=== PATIENT | male | born 1950 | race Caucasian/White ===

== ENCOUNTER 2019-10-02 10:36 | Emergency (ER) | payer MEDICARE, OTHER ==
[2019-10-02 12:33] VITALS: BP 153/82
--- NOTE | 2019-10-02 12:38 | UC ---
Throat Pain/Nasal Eddie HPI - HPI Summary HPI Summary: Patient is a 69-year-old male presenting with for sore throat, productive cough, and nasal congestion 3 days. Patient states congestion has worsened today and he is coughing a lot at night. Patient states he just can't take it anymore. Notes right ear pressure. Denies sinus tenderness. Denies shortness of breath and wheezing. Denies nausea, vomiting, diarrhea, abdominal pain. Denies fevers, chills, headaches. He denies history of asthma. Patient is former smoker quit 10 years ago. - History of Current Complaint Chief Complaint: UCRespiratory Stated Complaint: SORE THROAT, COUGH Hx Obtained From: Patient Onset/Duration: Gradual Onset, Lasting Days Pain Intensity: 0 - Allergies/Home Medications Allergies/Adverse Reactions: Allergies Allergy/AdvReac Type Severity Reaction Status Date / Time gabapentin Allergy Altered Verified 10/02/19 12:26 Mental Status Home Medications: Home Medications Fluticasone NASAL SPRAY 50MCG* [Flonase NASAL SPRAY 50MCG*] 2 spray BOTH NARES DAILY PRN 10/02/19 [History Confirmed 10/02/19] Lisinopril TAB* [Prinivil TAB*] 10 mg PO DAILY 10/02/19 [History Confirmed 10/02] Simvastatin 20 mg PO DAILY 10/02/19 [History Confirmed 10/02/19] rOPINIRole TAB* [Requip*] 4 mg PO BEDTIME 10/02/19 [History Confirmed 10/02/19] traMADol TAB* [Ultram*] 25 mg PO TID 10/02/19 [History Confirmed 10/02/19] PMH/Surg Hx/FS Hx/Imm Hx Cardiovascular History: Hypertension - Surgical History Surgical History: Yes Surgery Procedure, Year, and Place: neck- 2003. 2005- lumbar. 2008- thorasic back. urethralplasty - Social History Occupation: Retired Alcohol Use: Daily Alcohol Amount: 3 beer daily Substance Use Type: None Smoking Status (MU): Former Smoker When Did the Patient Quit Smoking/Using Tobacco: 10 years ago Review of Systems All Other Systems Reviewed And Are Negative: Yes Constitutional: Positive: Negative. Negative: Fever, Chills, Fatigue Eyes: Positive: Negative ENT: Positive: Sore Throat, Ear Ache - Right ear, Nasal Discharge, Sinus Congestion. Negative: Sinus Pain/Tenderness Respiratory: Positive: Cough. Negative: Shortness Of Breath Cardiovascular: Positive: Negative. Negative: Palpitations, Chest Pain Gastrointestinal: Positive: Negative. Negative: Abdominal Pain, Vomiting, Diarrhea, Nausea Musculoskeletal: Positive: Negative Neurological: Positive: Negative Physical Exam Triage Information Reviewed: Yes Appearance: Well-Appearing, No Pain Distress, Well-Nourished Vital Signs: Initial Vital Signs Temp 99.2 F 10/02/19 12:28 Pulse 96 10/02/19 12:28 Resp 17 10/02/19 12:28 BP 153/82 10/02/19 12:28 Pulse Ox 96 10/02/19 12:28 Vital Signs Reviewed: Yes Eyes: Positive: Conjunctiva Clear ENT: Positive: Hearing grossly normal, Pharyngeal erythema, Nasal congestion, Nasal drainage - PND, TMs normal, Uvula midline. Negative: Tonsillar swelling, Tonsillar exudate, Hoarse voice, Sinus tenderness Neck exam: Normal Neck: Positive: Supple, Nontender, No Lymphadenopathy Respiratory Exam: Normal Respiratory: Positive: Lungs clear, Normal breath sounds, No respiratory distress. Negative: Crackles, Rhonchi, Stridor, Wheezing Cardiovascular Exam: Normal Cardiovascular: Positive: RRR Neurological: Positive: Alert Psychological: Positive: Age Appropriate Behavior Throat Pain/Nasal Course/Dx - Course Course Of Treatment: Educated patient on upper respiratory infections and acute bronchitis. Discussed likely viral etiology and to continue with symptomatic treatment including decongestants, nasal spray, and use of Tessalon Perles help really coughing at night. Discussed elevated blood pressure with patient and he states he has whitecoat hypertension along with diagnosed hypertension for which he takes lisinopril states it is normally not this high. Instructed patient to follow up with PCP or referral as listed if symptoms persist past 7- 10 days. Instructed to go to ED if they worsen. Patient voiced understanding and agreed with the treatment plan. - Differential Dx/Diagnosis Provider Diagnosis: Upper respiratory infection, Acute bronchitis, Elevated blood pressure reading in office with white coat syndrome, with diagnosis of hypertension Discharge ED - Sign-Out/Discharge Documenting (check all that apply): Patient Departure All imaging exams completed and their final reports reviewed: No Studies - Discharge Plan Condition: Stable Disposition: HOME Prescriptions: Benzonatate CAP* [Tessalon 100 MG CAP*] 100 mg PO TID PRN #[id number] cap PRN Reason: Cough Patient Education Materials: Upper Respiratory Infection (ED), Acute Bronchitis (ED) Referrals: [facility] [place] [facility] [Outside] - If Needed Additional Instructions: As discussed, your symptoms are likely caused by a virus. Viruses do not respond to antibiotic treatment. You may continue use of Mucinex as directed to help reduce mucous production. You may take the Tessalon Perles as prescribed help alleviate coughing. You may also continue with flonase. Increase your fluid intake and get plenty of rest. Follow-up with your PCP or one of the referrals listed below if symptoms do not resolve within 7-10 days. Go to the emergency room if he experienced fever higher than 102, difficulty breathing, or nausea and vomiting. - Billing Disposition and Condition Condition: STABLE Disposition: Home
== END 2019-10-02 12:58 | disposition home or self-care (01) ==
LOC: UCCORT 10:36
DX: J06.9 Acute upper respiratory infection, unspecified (principal); J20.9 Acute bronchitis, unspecified; I10 Essential (primary) hypertension; Z87.891 Personal history of nicotine dependence; Z88.8 Allergy status to other drugs, medicaments and biological substances
CPT/HCPCS: 99201; G0463

== ENCOUNTER 2019-10-07 08:56 | Emergency (ER) | payer MEDICARE ==
[2019-10-07 10:06] VITALS: BP 150/86
--- NOTE | 2019-10-07 10:39 | UC ---
Throat Pain/Nasal Eddie HPI - HPI Summary HPI Summary: 69 y/o male presents to the urgent care c/o sore throat, dry cough, sinus congestion w/ green drainage for the past 7 days. Pt was seen here at the clinic on 10/03/2019 and Dx URI and Rx Tessalon tabs PO to alleviate symptoms. He has not improved and now symptoms have worsen w/ b/l eye redness and yellowish drainage and low grade fever last night. He has PMHX of HTN and has not taken his BP medication since he takes it at night time. Sinus pain is 4/ 10. Pt denies SOB, wheezing, chest pain,abdominal pain, YEAGER, N/V/D. Yesterday he started to use Flonase Nasal Riva which helped. - History of Current Complaint Chief Complaint: UCRespiratory Stated Complaint: SINUSES Time Seen by Provider: 10/07/19 10:30 Hx Obtained From: Patient Onset/Duration: Gradual Onset, Lasting Weeks - 1 week, Still Present, Worse Since - yesterday Severity: Moderate Pain Intensity: 4 Pain Scale Used: 0-10 Numeric Cough: Nonproductive Associated Signs & Symptoms: Positive: Sinus Discomfort, Nasal Discharge - green , Fever - last night. Negative: Wheezing - Epiglottits Risk Factors Epiglottis Risk Factors: Negative - Allergies/Home Medications Allergies/Adverse Reactions: Allergies Allergy/AdvReac Type Severity Reaction Status Date / Time gabapentin Allergy Altered Verified 10/02/19 12:26 Mental Status PMH/Surg Hx/FS Hx/Imm Hx Previously Healthy: Yes Endocrine History: Dyslipidemia Cardiovascular History: Hypertension - Surgical History Surgical History: Yes Surgery Procedure, Year, and Place: neck- 2002. 2004- lumbar. 2007- thoracic back. urethralplasty - Family History Known Family History: Positive: Cardiac Disease, Hypertension - Social History Occupation: Employed Full-time Lives: With Family Alcohol Use: Daily Alcohol Amount: 3 beer daily Substance Use Type: None Smoking Status (MU): Former Smoker When Did the Patient Quit Smoking/Using Tobacco: 10 years ago Review of Systems All Other Systems Reviewed And Are Negative: Yes Constitutional: Positive: Negative Skin: Positive: Negative Eyes: Positive: Drainage - yellowish drainage, Eye Redness - B/lL eye ENT: Positive: Sore Throat, Ear Ache - b/L ear pressure, Nasal Discharge - green , Sinus Congestion, Sinus Pain/Tenderness, Other - green PND Respiratory: Positive: Cough Cardiovascular: Positive: Negative Gastrointestinal: Positive: Negative Genitourinary: Positive: Negative Motor: Positive: Negative Neurovascular: Positive: Negative Musculoskeletal: Positive: Negative Neurological: Positive: Negative Psychological: Positive: Negative Is Patient Immunocompromised?: No Physical Exam - Summary Physical Exam Summary: Vitals: reviewed General: Well developed, well-nourished obese male patient with NAD. Head and face: Normocephalic and atraumatic, Positive tenderness over the frontal and maxillary sinuses.. Eyes: PERRLA, EOMI x 2. Normal conjunctiva. No eye discharge. ENT: Ears and TM with normal limits. Nose: edematous and erythematous nasal mucosa with with yellowish discharge and erythematous mucosa. Pharynx with erythema, no exudate. green PND Neck: Supple, no JVD, no carotid bruits and no lymphadenopathy. Lungs: clear, no rales, no rhonchi, no wheezes. CVS: RRR, S1 and S2 present no murmurs or gallops appreciated. Abdomen: soft nontender with positive bowel sounds. Extremities: no edema noted. Neuro: WNL. Skin: warm and dry Triage Information Reviewed: Yes Vital Signs: Initial Vital Signs Temp 98.4 F 10/07/19 09:55 Pulse 100 10/07/19 09:55 Resp 20 10/07/19 09:55 BP 150/86 10/07/19 09:55 Pulse Ox 97 10/07/19 09:55 Throat Pain/Nasal Course/Dx - Course Course Of Treatment: 69 y/o male presents to the urgent care c/o sore throat, dry cough, sinus congestion w/ green drainage for the past 7 days. Pt was seen here at the clinic on 10/03/2019 and Dx URI and Rx Tessalon tabs PO to alleviate symptoms. He has not improved and now symptoms have worsen w/ b/l eye redness and yellowish drainage and low grade fever last night. He has PMHX of HTN and has not taken his BP medication since he takes it at night time. Sinus pain is 4/ 10. Pt denies SOB, wheezing, chest pain,abdominal pain, YEAGER, N/V/D. Yesterday he started to use Flonase Nasal Riva which helped. Hx obtained. Pt w/ Acute bacterial sinusitis and B/L eye conjunctivitis on examination. Pt with 1 week of symptoms getting worse. Pt Rx Amoxicillin PO and ciprofloxacin opth drops and advised to continue w/ Flonase nasal spray and Tessalon PO for cough. Discharge instructions explained to Pt. Pt's BP is elevated today advised to decrease salt in diet, monitor BP and f/u with PCP for further management. Advised to Return to the clinic or PCP if symptoms do not improve.Pt understood and agreed with plan of care. - Differential Dx/Diagnosis Differential Diagnosis/HQI/PQRI: Otitis Media, Pharyngitis, Sinusitis, URI Provider Diagnosis: Acute bacterial sinusitis, Bilateral conjunctivitis, Uncontrolled hypertension Discharge ED - Sign-Out/Discharge Documenting (check all that apply): Patient Departure - d/c home All imaging exams completed and their final reports reviewed: No Studies - Discharge Plan Condition: Stable Disposition: HOME Prescriptions: Amoxicillin PO (*) [Amoxicillin 875 MG (*)] 875 mg PO BID #20 tab Ciprofloxacin 0.3% OPTH.TERE* [Cipro 0.3% Opth*] 1 drop BOTH EYES Q2H #1 btl Patient Education Materials: Sinusitis (ED), Conjunctivitis (ED) Referrals: [facility] [place] [facility] [Outside] - 3 Days Additional Instructions: 1- Please increase fluid intake and rest. take full course of antibiotics to avoid resistance. Take yogurts w/ probiotics or Culturelle to protect your GI system 2-Use Flonase as directed to help drain fluid. Also buy saline drops to clear sinuses. 3-appkly ophthalmic drops as directed and encourage hand washing to avoid spreading 4-Continue taking Tessalon PO to alleviates sinus congestion 5-Please f/u w/ your PCP in 3 days if symptoms do not improve for further management and treatment 6- Your BP is elevated today. please decrease salt in your diet, monitor BP and if it continues to be elevated please f/u with your PCP for further management. - Billing Disposition and Condition Condition: STABLE Disposition: Home - Attestation Statements Provider Attestation: Patient not seen by me. Chart reviewed. I was available for consult. JIGAR
== END 2019-10-07 11:00 | disposition home or self-care (01) ==
LOC: UCCORT 08:56
DX: J01.90 Acute sinusitis, unspecified (principal); R05 Cough; J02.9 Acute pharyngitis, unspecified; H10.9 Unspecified conjunctivitis; I10 Essential (primary) hypertension; B96.89 Other specified bacterial agents as the cause of diseases classified elsewhere; Z87.891 Personal history of nicotine dependence
CPT/HCPCS: 99212; G0463